=== PATIENT | male | born 1995 | race Caucasian/White ===

== ENCOUNTER 2017-04-30 23:18 | Emergency (ER) | payer OTHER ==
--- NOTE | ~2017-04-30 | ER ---
PATIENT'S NAME: HILDA HALL [facility] AGE: 21 Y [address] ROOM: [place] [address] LOCATION: [facility] ADMIT DATE: 04/30/2017 ER/Outpatient Report DISCHARGE DATE: 05/01/2017 FAMILY PHYSICIAN: PHYSICIAN, NO ATTENDING PHYSICIAN: Luke Glasgow HISTORY OF PRESENT ILLNESS: This patient is a 21-year-old male, who has seen initially by NICKI Weinstein. The patient had what he thought was a heat exhaustion. He did run a fever with headache, nausea, and vomiting. See Isaiah Smallwood's dictation in regard to chief complaint, history of present illness, past medical history, and physical exam. Isaiah asked me to follow up with the patient's laboratory studies, final diagnosis, and treatment plan. We did start the patient on IV normal saline fluids and gave him 2 L here in the emergency department. We did give him Zofran for nausea IV. LABORATORY DATA: The patient's laboratory study showed a white count of 16,000, 85 segs, 8 lymphs, 8 monos, 1 eo, hemoglobin was 13.5, hematocrit 37.3, and platelet count is 254,000. Sedimentation rate was slightly elevated at 20. Blood cultures x2 drawn, results pending. Urinalysis was clear. Culture pending. CMS was normal except for an elevated glucose of 106, low anion gap of 9.8, CPK was 198, and CRP was 1.95. IMPRESSION: Heat exhaustion with fever, decreased circular volume, and mild abdominal pain. PLAN: The patient was hydrated. Discharged home. Observation. Activity as tolerated. Good hydration. Good rest. Balanced diet. Stay away from sun for a week if possible. Follow up with personal physician as needed. MD EMILY MURCIA/modl /[id number] d: 05/01/17 0303 t: 05/09/17 1033, OUTPATIENT REPORT
--- NOTE | ~2017-04-30 | ER ---
PATIENT'S NAME: [facility] AGE: 21 Y [address] ROOM: [place] [address] LOCATION: [facility] ADMIT DATE: 04/30/2017 ER/Outpatient Report DISCHARGE DATE: 05/01/2017 FAMILY PHYSICIAN: PHYSICIAN, NO ATTENDING PHYSICIAN: Luke Glasgow HISTORY OF PRESENT ILLNESS: The patient is a 21-year-old male. He presents, history of working outside, and then, approximately 1 p.m., he started to feel poorly. The patient said he was noted to have a fever. He also experienced some nausea, vomited once, headache. He denied any cough, sore throat, or diarrhea. ALLERGIES: NONE. HOME MEDICATIONS: None. MEDICAL HISTORY: No chronic diseases. SURGERIES: Include cholecystectomy done on 03/02/2017. SOCIAL HISTORY: Chews. Alcohol socially. REVIEW OF SYSTEMS: GENERAL: Fever and chills today. HEAD/EENT: Has had a headache, but denies sore throat. RESPIRATORY: No cough, wheezing, or shortness of breath. GASTROINTESTINAL: Nausea and vomiting. No diarrhea. No significant abdominal pain. GENITOURINARY: Has voided without any dysuria. No flank pain. SKIN: No rash. PHYSICAL EXAMINATION: VITAL SIGNS: His blood pressure is 149/70. His temperature is 101.3, respiratory rate 18, pulse 88, and O2 saturation is 98%. GENERAL APPEARANCE: Well nourished. Appears somewhat anxious, but alert. HEAD: Normocephalic. EYES: PERRL. No icterus. NOSE: Septum midline. MOUTH: Teeth in good repair. Buccal membranes moist. There is no erythema or exudate. PATIENT'S NAME: [facility] AGE: 21 Y [address] ROOM: [place] [address] LOCATION: [facility] ADMIT DATE: 04/30/2017 ER/Outpatient Report DISCHARGE DATE: 05/01/2017 FAMILY PHYSICIAN: PHYSICIAN, NO ATTENDING PHYSICIAN: Luke Glasgow NECK: No rigidity. No adenopathy. LUNGS: Breath sounds are clear. HEART: No tachycardia. Blood pressure is stable. No murmurs. ABDOMEN: Soft and nontender. SKIN: Warm. No rash. NEUROLOGIC: Oriented x3. PLAN: IV was started. Lab drawn. Patient will be turned over to Dr. Glasgow at the end of shift, please refer to his dictation. NICKI REMY FOR MD WALTER MURCIA/rula /[id number] d: 05/09/17 1409 t: 05/18/17 1826, OUTPATIENT REPORT
[2017-05-01 00:16] LABS: BILIRUBIN URINE NEGATIVE (NEGATIVE); BLOOD URINE NEGATIVE /UL (NEGATIVE); COLOR URINE YELLOW (YELLOW); GLUCOSE URINE NEGATIVE (NEGATIVE); KETONE URINE NEGATIVE (NEGATIVE); LEUKOCYTES URINE NEGATIVE /UL (NEGATIVE); NITRITE URINE NEGATIVE (NEGATIVE); PROTEIN URINE NEGATIVE (NEGATIVE); TURBIDITY URINE CLEAR (CLEAR); UROBILINOGEN URINE NORMAL (NORMAL)
[2017-05-01 00:26] LABS: BASOPHIL % 0.2 %; EOSINOPHIL # 0.1 K/uL (0.0-0.5); EOSINOPHIL % 0.6 %; HEMATOCRIT 37.3 % (37.0-53.0); HEMOGLOBIN 13.5 g/dL (12.0-17.0); IMMATURE GRANULOCYTE # 0.1 K/uL (0.0-0.3); IMMATURE GRANULOCYTE % 0.4 %; LYMPHOCYTE # 0.9 K/uL (0.8-4.0); LYMPHOCYTE % 5.7 %; MCH 31.1 pg (27.0-34.0); MCHC 36.2 gm/dL (32.0-36.5); MCV 85.9 fl (83.0-98.0); MONOCYTE # 1.2 K/uL (0.0-1.0); MONOCYTE % 7.7 %; NEUTROPHIL # (ANC) 13.7 K/uL (1.4-9.0); NEUTROPHIL % 85.4 %; NRBC % 0 /100WBC (0-0.00); PLATELET COUNT 254 K/uL (150-450); RBC 4.34 M/uL (4.00-6.00); RDW-CV 11.6 % (11.9-14.6)
[2017-05-01 00:42] LABS: ALBUMIN 3.7 gm/dL (3.5-5.0); ALK PHOS 82 IU/L (33-138); ALT 40 IU/L (12-78); ANION GAP 9.8 (10.0-19.0); AST 21 IU/L (10-40); BLOOD UREA NITROGEN 16 mg/dL (6-24); CALCIUM 8.5 mg/dL (8.5-10.5); CHLORIDE 105 mMol/L (96-110); CO2 27 mMol/L (22-32); CPK 198 IU/L (35-332); CREATININE 1.1 mg/dL (0.6-1.3); ESTIMATED GFR (MDRD EQUATION) > 60; POTASSIUM 3.8 mMol/L (3.7-5.1); SODIUM 138 mMol/L (135-145); TOTAL BILIRUBIN 0.7 mg/dL (0.0-1.5)
== END 2017-05-01 01:57 | disposition disaster alternative care site (69) ==
LOC: GMED 23:18
PROVIDERS: Emergency Medicine
DX: T67.5XXA Heat exhaustion, unspecified, initial encounter (principal); E86.9 Volume depletion, unspecified; R10.9 Unspecified abdominal pain; F17.220 Nicotine dependence, chewing tobacco, uncomplicated; X30.XXXA Exposure to excessive natural heat, initial encounter
CPT/HCPCS: J2405; J7030